=== PATIENT | male | born 1965 | race Caucasian/White ===

== ENCOUNTER 2023-07-01 13:04 | Emergency (ER) | payer OTHER ==
[~2023-07-01] VITALS: Ht 188 cm; Wt 108.9 kg
[2023-07-01 13:23] VITALS: BP_SYST 129; PULSE 94; RESP 18; TEMP 97.5; O2SAT 100
[2023-07-01] MEDS ORDERED: KETOROLAC TROMETHAMINE 60 MG/2 ML VIAL IM ONE (14:15)
[2023-07-01] MEDS ORDERED: DICL75TA5 PO (15:32)
[2023-07-01 16:09] VITALS: BP_SYST 132; PULSE 81; RESP 20; TEMP 98; O2SAT 99
== END 2023-07-01 16:09 | disposition home or self-care (01) ==
LOC: SED 13:04
DX: S30.0XXA Contusion of lower back and pelvis, initial encounter (principal); S70.02XA Contusion of left hip, initial encounter; Z79.899 Other long term (current) drug therapy; W01.0XXA Fall on same level from slipping, tripping and stumbling without subsequent striking against object, initial encounter; Y93.89 Activity, other specified; Y92.89 Other specified places as the place of occurrence of the external cause; Y99.8 Other external cause status
CPT/HCPCS: 99284; 72100; 73502; 96372; 72170; J1885

== ENCOUNTER 2024-01-27 17:25 | Emergency (ER) | payer OTHER ==
[~2024-01-27] VITALS: Ht 188 cm; Wt 84.8 kg
[~2024-01-27 17:25] MED LIST: DICL75TA5 PO
[2024-01-27 17:30] VITALS: BP_SYST 133; PULSE 91; RESP 19; TEMP 98.2; O2SAT 97
[2024-01-27] MEDS ORDERED: DICL75TA5 PO (19:03)
[2024-01-27 19:19] VITALS: BP_SYST 126; PULSE 88; RESP 18; TEMP 98.3; O2SAT 99
== END 2024-01-27 19:15 | disposition home or self-care (01) ==
LOC: SED 17:25
DX: M13.851 Other specified arthritis, right hip (principal); Z79.899 Other long term (current) drug therapy
CPT/HCPCS: 72192-TC; 99284

== ENCOUNTER 2024-07-05 05:58 | Emergency (ER) | payer OTHER ==
[~2024-07-05] VITALS: Ht 185.4 cm; Wt 111.1 kg
[2024-07-05 06:03] VITALS: BP_SYST 144; PULSE 83; RESP 16; TEMP 98.3; O2SAT 89
[2024-07-05 06:49] LABS: BASOPHILS # (AUTO) 0.1 K/uL (0.0-0.2); BASOPHILS % (AUTO) 0.7 % (0.0-2.0); EOSINOPHILS # (AUTO) 0.3 K/uL (0.0-0.4); EOSINOPHILS % (AUTO) 3.4 % (0.0-4.0); HEMATOCRIT 48.5 % (36-54); HEMOGLOBIN 16.1 g/dL (14.0-18.0); LYMPHOCYTES # (AUTO) 1.4 K/uL (1.0-5.5); LYMPHOCYTES % (AUTO) 18.3 % (20.5-51.5); MEAN CORPUSCULAR HEMOGLOBIN 31 pg (27-31); MEAN CORPUSCULAR HGB CONC 33 % (32-36); MEAN CORPUSCULAR VOLUME 93 fL (79.0-98.0); MONOCYTES # (AUTO) 0.7 K/uL (0.0-1.0); MONOCYTES % (AUTO) 9.3 % (1.7-9.3); NEUTROPHILS # (AUTO) 5.3 K/uL (1.8-7.7); NEUTROPHILS % (AUTO) 68.3 % (40.0-70.0); PLATELET COUNT (AUTO) 301 K/uL (130-430); RED BLOOD CELL COUNT(AUTO) 5.24 MIL/uL (4.2-6.2); RED CELL DISTRIBUTION WIDTH 15.3 % (9.0-15.0); WHITE BLOOD COUNT (AUTO) 7.7 K/uL (4.8-10.8)
[2024-07-05 06:52] LABS: ERYTHROCYTE SEDIMENTATION RATE 8 MM/HR (0-15)
[2024-07-05 07:11] LABS: INR 0.9 (0.80-1.20); PROTHROMBIN TIME 9.7 SECS (9.5-12.5)
[2024-07-05 07:16] LABS: POTASSIUM 3.9 mmol/L (3.5-5.1)
[2024-07-05 07:55] LABS: CALCIUM 8.6 mg/dL (8.4-11.0); CREATININE 1.03 mg/dL (0.55-1.30)
[2024-07-05 08:27] VITALS: BP_SYST 156; PULSE 81; RESP 20; TEMP 98.6; O2SAT 94
[2024-07-05 08:28] LABS: CKMB RELATIVE INDEX 1.4 (0.0-2.9); CREATINE KINASE MB 6.2 ng/mL (0-3.6)
[2024-07-05] MEDS ORDERED: IBUP-1971 PO (08:29)
[2024-07-05] MEDS ORDERED: ALPR0.5T PO (08:29)
== END 2024-07-05 08:11 | disposition home or self-care (01) ==
LOC: SED 05:58
DX: R51.9 Headache, unspecified (principal); F41.9 Anxiety disorder, unspecified; G89.29 Other chronic pain; Z79.899 Other long term (current) drug therapy
CPT/HCPCS: 36415; 70450-TC; 80048; 82550; 82553; 83605; 85025; 85610; 85651; 85730; 99284

== ENCOUNTER 2024-07-28 03:17 | Emergency (ER) | payer OTHER ==
[~2024-07-28] VITALS: Ht 185.4 cm; Wt 111.1 kg
[~2024-07-28 03:17] MED LIST changes: +ALPR0.5T PO; +IBUP-1971 PO
[2024-07-28 03:37] VITALS: BP_SYST 133; PULSE 78; RESP 18; TEMP 98.4; O2SAT 96
[2024-07-28] MEDS: KETOROLAC TROMETHAMINE 60 MG/2 ML VIAL IM ONE (04:03)
== END 2024-07-28 04:09 | disposition home or self-care (01) ==
LOC: SED 03:17
DX: S33.5XXA Sprain of ligaments of lumbar spine, initial encounter (principal); F41.9 Anxiety disorder, unspecified; F32.A Depression, unspecified; G89.29 Other chronic pain; Z79.899 Other long term (current) drug therapy; Z79.2 Long term (current) use of antibiotics; X58.XXXA Exposure to other specified factors, initial encounter; Y93.89 Activity, other specified; Y92.89 Other specified places as the place of occurrence of the external cause; Y99.8 Other external cause status
CPT/HCPCS: 99283; 96372; J1885

== ENCOUNTER 2024-09-03 19:51 | Emergency (ER) | payer OTHER ==
[2024-09-03 20:04] VITALS: BP_SYST 141; PULSE 97; RESP 19; TEMP 97.4; O2SAT 100
[2024-09-03] MEDS: LORazepam 2 MG/ML VIAL IVP ONE (22:37)
[2024-09-03 22:49] LABS: BASOPHILS # (AUTO) 0.1 K/uL (0.0-0.2); BASOPHILS % (AUTO) 0.7 % (0.0-2.0); EOSINOPHILS # (AUTO) 0.2 K/uL (0.0-0.4); EOSINOPHILS % (AUTO) 1.7 % (0.0-4.0); HEMATOCRIT 45.9 % (36-54); HEMOGLOBIN 15.6 g/dL (14.0-18.0); LYMPHOCYTES # (AUTO) 1.4 K/uL (1.0-5.5); LYMPHOCYTES % (AUTO) 13.9 % (20.5-51.5); MEAN CORPUSCULAR HEMOGLOBIN 31 pg (27-31); MEAN CORPUSCULAR HGB CONC 34 % (32-36); MEAN CORPUSCULAR VOLUME 91 fL (79.0-98.0); MONOCYTES # (AUTO) 0.7 K/uL (0.0-1.0); MONOCYTES % (AUTO) 7.6 % (1.7-9.3); NEUTROPHILS # (AUTO) 7.5 K/uL (1.8-7.7); NEUTROPHILS % (AUTO) 76.1 % (40.0-70.0); PLATELET COUNT (AUTO) 321 K/uL (130-430); RED BLOOD CELL COUNT(AUTO) 5.07 MIL/uL (4.2-6.2); RED CELL DISTRIBUTION WIDTH 15.9 % (9.0-15.0); WHITE BLOOD COUNT (AUTO) 9.8 K/uL (4.8-10.8)
[2024-09-03 23:12] LABS: ANION GAP 7 (5-15); CALCIUM 8.6 mg/dL (8.4-11.0); CARBON DIOXIDE 28 mmol/L (23-29); CHLORIDE 104 mmol/L (98-107); CREATININE 1.14 mg/dL (0.55-1.30); GFR AFRICAN AMERICAN 85 mL/min (>90); GLUCOSE 86 mg/dL (74-106); SODIUM SERUM 139 mmol/L (136-145); UREA NITROGEN, BLOOD 12 mg/dL (8-21)
[2024-09-03 23:26] LABS: GFR NON AFRICAN-AMERICAN 70 mL/min (>90)
[2024-09-03 23:59] VITALS: BP_SYST 138; PULSE 81; RESP 18; TEMP 98; O2SAT 96
== END 2024-09-03 23:59 | disposition home or self-care (01) ==
LOC: SED 19:51
DX: R51.9 Headache, unspecified (principal); R42 Dizziness and giddiness; R53.1 Weakness; R03.0 Elevated blood-pressure reading, without diagnosis of hypertension; R41.0 Disorientation, unspecified; F17.200 Nicotine dependence, unspecified, uncomplicated; F41.9 Anxiety disorder, unspecified; F32.A Depression, unspecified; G89.29 Other chronic pain; Z79.899 Other long term (current) drug therapy
CPT/HCPCS: 99285; 96374; 70450; 71045; 80048; 85025; 84484; 36415; 93005; J2060